=== PATIENT | male | born 1970 | race Caucasian/White ===

== ENCOUNTER 2019-02-24 15:24 | Emergency (ER) | payer BC ==
[2019-02-24 15:43] VITALS: BP 144/92
--- NOTE | 2019-02-24 16:01 | UC ---
Back Pain HPI - HPI Summary HPI Summary: 48-year-old male comes in with a chief complaint of low back pain. Started about 2 weeks ago. No known trauma. It did start suddenly when he stood up. Pain is worse with twisting turning bending. Been taken ibuprofen which overall has been helping. Yesterday he had an incidence where the pain returned worse than before. Has been having intermittent pain going down the left buttock. Denies any weakness or numbness or loss of control of urine or bowels. - History of Current Complaint Chief Complaint: UCBackPain Stated Complaint: BACK PAIN Time Seen by Provider: 02/24/19 15:46 Pain Intensity: 8 - Allergies/Home Medications Allergies/Adverse Reactions: Allergies Allergy/AdvReac Type Severity Reaction Status Date / Time No Known Allergies Allergy Verified 02/24/19 15:37 Home Medications: Home Medications Ibuprofen 400 mg PO Q12H PRN 02/24/19 [History Confirmed 02/24/19] PMH/Surg Hx/FS Hx/Imm Hx Previously Healthy: Yes - Surgical History Surgical History: None - Family History Known Family History: Positive: Non-Contributory - Social History Alcohol Use: None Substance Use Type: None Smoking Status (MU): Never Smoked Tobacco Review of Systems All Other Systems Reviewed And Are Negative: Yes Constitutional: Positive: Negative Skin: Positive: Negative Eyes: Positive: Negative ENT: Positive: Negative Respiratory: Positive: Negative Cardiovascular: Positive: Negative Gastrointestinal: Positive: Negative Motor: Positive: Other - SEE HPI Neurovascular: Positive: Negative Musculoskeletal: Positive: Other: - SEE HPI Neurological: Positive: Negative Psychological: Positive: Negative Is Patient Immunocompromised?: No Physical Exam Triage Information Reviewed: Yes Appearance: Well-Appearing, Well-Nourished, Pain Distress - MILD WITH ROM Vital Signs: Initial Vital Signs Temp 97.6 F 02/24/19 15:38 Pulse 91 02/24/19 15:38 Resp 18 02/24/19 15:38 BP 144/92 02/24/19 15:38 Pulse Ox 98 02/24/19 15:38 Vital Signs Reviewed: Yes Eye Exam: Normal Eyes: Positive: Conjunctiva Clear Neck: Positive: Supple Respiratory: Positive: No respiratory distress Musculoskeletal: Positive: Other: - Tender to palpation low back into the left of the lower lumbar region. Both legs have full range of motion and full strength. No sensation deficits. There is increased pain with left hip flexion in the low back. 1+ bilateral patellar reflexes. Neurological: Positive: Alert Psychological: Positive: Age Appropriate Behavior Skin Exam: Normal Back Pain Course/Dx - Course Course Of Treatment: No neurologic deficits. Plan is to continue with the ibuprofen and he can add lidocaine patches if needed. Also prescription for Flexeril is written. I also discussed stretching exercises for the back. I gave him a physical therapy referral form. Can also follow-up with either sports medicine or his primary care physician. Discussed that if he has any neurologic deficits to get reevaluated right away. - Differential Dx/Diagnosis Provider Diagnosis: Lumbar pain with radiation down left leg Discharge ED - Sign-Out/Discharge Documenting (check all that apply): Patient Departure All imaging exams completed and their final reports reviewed: No Studies - Discharge Plan Condition: Stable Disposition: HOME Prescriptions: Cyclobenzaprine TAB* [Flexeril 10 MG TAB*] 10 mg PO TID PRN #15 tab MDD 3 PRN Reason: Pain - Moderate Patient Education Materials: Acute Low Back Pain (ED), Lumbar Radiculopathy (ED ), Lower Back Exercises (ED) Referrals: oMdesto Salas MD [Primary Care Provider] - [facility] [Provider Group] Additional Instructions: FOLLOW UP WITH PHYSICAL THERAPY, SPORTS MEDICINE OR YOUR PRIMARY CARE DOCTOR. GET RECHECKED SOONER IF YOUR CONDITION WORSENS; PAIN, WEAKNESS, NUMBNESS, DIFFICULTY CONTROLLING BOWEL OR BLADDER OR ANY QUESTIONS OR CONCERNS. - Billing Disposition and Condition Condition: STABLE Disposition: Home
== END 2019-02-24 16:10 | disposition home or self-care (01) ==
LOC: UCEAST 15:24
DX: M54.16 Radiculopathy, lumbar region (principal)
CPT/HCPCS: 99202; G0463

== ENCOUNTER 2019-02-25 08:14 | Emergency (ER) | payer BC ==
--- NOTE | 2019-02-25 08:32 | ED ---
Back Pain - HPI Summary HPI Summary: Patient is a 48-year-old male who presents emergency department for worsening back pain over 2-3 weeks. Patient states he weeks ago he bent over and since has had low back pain that radiates into his left leg. He was seen at yesterday and rx flexeril. Pt. states that today he started experiencing numbness/tingling in left leg so presents for re-evaluation. Pt. denies fever, drug use, leg weakness, saddle paresthesia, bowel or bladder incontinence or retention. Sxs are moderate in severity. No current modifying factors. - History of Current Complaint Chief Complaint: EDBackInjuryPain Stated Complaint: SEVERE BACK PAIN/NUMBNESS PER PT Time Seen by Provider: 02/25/19 08:24 Hx Obtained From: Patient Pain Intensity: 9 - Allergies/Home Medications Allergies/Adverse Reactions: Allergies Allergy/AdvReac Type Severity Reaction Status Date / Time No Known Allergies Allergy Verified 02/25/19 08:33 PMH/Surg Hx/FS Hx/Imm Hx Previously Healthy: Yes Infectious Disease History: No Infectious Disease History: Denies: Traveled Outside the [place] in Last 30 Days - Family History Known Family History: Positive: Non-Contributory - Social History Occupation: Employed Full-time Lives: With Family Alcohol Use: None Substance Use Type: Reports: None Smoking Status (MU): Never Smoked Tobacco Review of Systems Constitutional: Negative Negative: Fever, Chills Respiratory: Negative Gastrointestinal: Negative Genitourinary: Negative Negative: dysuria Positive: Other - Low back pain that radiates into left leg Skin: Negative Positive: Paresthesia, Numbness. Negative: Weakness All Other Systems Reviewed And Are Negative: Yes Physical Exam Triage Information Reviewed: Yes Vital Signs On Initial Exam: Initial Vitals Temp Pulse Resp BP Pulse Ox 97.6 F 87 18 148/96 98 02/25/19 08:18 02/25/19 08:18 02/25/19 08:18 02/25/19 08:18 02/25/19 08:18 Vital Signs Reviewed: Yes Appearance: Positive: Well-Appearing - Pt. lying bed in NAD. pesent. Skin: Positive: Warm, Dry Head/Face: Positive: Normal Head/Face Inspection Eyes: Positive: Normal, EOMI Neck: Positive: Supple Respiratory/Lung Sounds: Positive: Clear to Auscultation, Breath Sounds Present Cardiovascular: Positive: Normal, RRR Musculoskeletal: Positive: Other - low midline tenderness. pain over left SI joint. 5/5 strength in bilateral LEs. No decrease sensation to legs. Straight leg positive at about 45 degrees. Neurological: Positive: Normal, CN Intact II-III Psychiatric: Positive: Affect/Mood Appropriate Diagnostics - Vital Signs Vital Signs Temp Pulse Resp BP Pulse Ox 02/25/19 08:18 97.6 F 87 18 148/96 98 - Laboratory Lab Statement: Any lab studies that have been ordered have been reviewed, and results considered in the medical decision making process. Back Pain Course/Dx - Course Course Of Treatment: Patient with lumbar radiculopathy. He has no neurological deficits or evidence of cauda equina syndrome. He is afebrile. Suspect disc herniation. Patient is given a dose of Percocet, Toradol and prednisone. CT per radiology: FINDINGS: There is subtle straightening of lumbar lordotic curvature with 2 mm retrolisthesis of L5. on S1. There is no abnormal splaying of the spinous processes. The facets are anatomically. aligned. The bone mineralization is within normal limits. The vertebral body heights are. maintained. No fracture is identified. There is mild intervertebral disc height loss at L5-S1. The paraspinal soft tissues are grossly unremarkable. A left paracentral to foraminal disc protrusion at L3-L4 narrows the left lateral recess. and likely results in moderate left neural foraminal stenosis. Uncovered disc and facet. arthropathy results in moderate bilateral neural foraminal stenosis at L5-S1. There is no. significant osseous encroachment of the spinal canal. IMPRESSION: 1. A left paracentral to foraminal disc protrusion at L3-L4 narrows the left lateral. recess. It likely results in moderate left neural foraminal stenosis; however, this could. be better evaluated by MRI. The proximity of the descending left L4 nerve root to the disc herniation would also be better characterized by MRI. 2. Moderate bilateral L5-S1 neural foraminal stenosis. On reexamination patient's pain is improved and he was ambulatory to the restroom. Results were discussed. Will keep patient on a course of prednisone and Percocet, PROGRAM LEAD reviewed. Will have patient follow-up with family doctor and neurosurgery further evaluation. Patient given strict return cautions. Patient understands and agrees with plan. - Diagnoses Differential Diagnosis/HQI/PQRI: Positive: Fracture, Herniated Disc, Strain Provider Diagnoses: Lumbar disc herniation with radiculopathy Discharge ED - Sign-Out/Discharge Documenting (check all that apply): Patient Departure Patient Received Moderate/Deep Sedation with Procedure: No - Discharge Plan Condition: Improved Disposition: HOME Prescriptions: methylPREDNISolone [Medrol Dosepak 4 MG*] 0 mg PO .SEE [employer] #1 tab oxyCODONE/Acetamin 5/325 MG* [Percocet 5/325 TAB*] 1 tab PO Q6H PRN #12 tab MDD 4 PRN Reason: Pain - Moderate Patient Education Materials: Lumbar Disc Herniation (ED) Forms: *Work Release Referrals: Modesto Salas MD [Primary Care Provider] - Mile Sarmiento MD [Medical Doctor] - Additional Instructions: Call Dr. Sarmiento' office today to schedule a follow up appointment Take medication as directed Avoid heavy lifting and bending Return to ER for worsening tingling/numbness, if you develop leg weakness, bowel or bladder incontinence or retention or numbness to genital region - Billing Disposition and Condition Condition: IMPROVED Disposition: Home
[2019-02-25] MEDS ORDERED: Ketorolac *IM* INJ* 60 MG/2 ML VIAL IM ONE (08:48)
[2019-02-25] MEDS ORDERED: oxyCODONE/Acetamin 5/325 MG* TAB PO ONE (08:48)
[2019-02-25] MEDS ORDERED: predniSONE TAB* 20 MG PO ONE (08:48)
[2019-02-25 10:59] VITALS: BP 117/80
== END 2019-02-25 10:57 | disposition home or self-care (01) ==
LOC: ED 08:14
DX: M51.16 Intervertebral disc disorders with radiculopathy, lumbar region (principal); Z79.899 Other long term (current) drug therapy
CPT/HCPCS: 72131; 96372; 99283; A9270-GY; J1885; J7512